=== PATIENT | female | born 1990 | race Caucasian/White ===

== ENCOUNTER 2024-07-30 10:13 | Outpatient (CLI) | payer OTHER | END 2024-07-30 10:54 | disposition home or self-care (01) | LOC: NST 10:13 | PROVIDERS: ATTEND Obstetrics & Gynecology | DX: Z34.83 Encounter for supervision of other normal pregnancy, third trimester (principal) ==

== ENCOUNTER 2024-08-13 12:40 | Outpatient (CLI) | payer OTHER | END 2024-08-13 13:30 | disposition home or self-care (01) | LOC: NST 12:40 | PROVIDERS: ATTEND Obstetrics & Gynecology | DX: Z34.83 Encounter for supervision of other normal pregnancy, third trimester (principal) ==

== ENCOUNTER 2024-08-17 12:58 | Inpatient (IN) | payer OTHER ==
[~2024-08-17] VITALS: Ht 152.4 cm; Wt 2.7 kg
[2024-08-17] MEDS ORDERED: AMPICILLIN SODIUM 2,000 MG VIAL ONE (13:42)
[2024-08-17 13:50] VITALS: BP 135/79
[2024-08-17 14:00] VITALS: BP 135/79
[2024-08-17] MEDS ORDERED: RINGERS SOLUTION,LACTATED 1,000 ML IV SCH (14:05)
[2024-08-17] MEDS ORDERED: PRENATAL + DHA1 EAC1 PO (14:21)
[2024-08-17] MEDS ORDERED: MISOPROSTOL 25 MCG TABLET VAG ONE (15:00)
[2024-08-17 15:17] LABS: BASO % 0.6 % (0.1-1.2); EOS # 0.52 (0.04-0.54); EOS % 3.3 % (0.7-7.0); HEMATOCRIT 37.8 % (34.1-44.9); HEMOGLOBIN 13.3 g/dL (11.2-15.7); LYMPH # 1.49 (1.18-3.74); LYMPH % 9.6 % (19.3-53.1); MEAN CORPUSCULAR HEMOGLOBIN 36.3 pg (25.6-32.2); MONO # 0.96 (0.24-0.82); MONO % 6.2 % (4.7-12.5); NEUT % 78.4 % (34.0-71.1); PLATELET COUNT 204 K/uL (163-369); RED BLOOD COUNT 3.66 M/uL (3.93-5.22); RED CELL DISTRIBUTION WIDTH 16.7 % (11.6-14.4)
[2024-08-17] MEDS ORDERED: AMPICILLIN SODIUM 2,000 MG VIAL IV SCH ×2 (15:17→18:00)
[2024-08-17 15:45] VITALS: BP 139/72
[2024-08-17 15:54] LABS: INR < 0.93; PARTIAL THROMBOPLASTIN TIME 27.8 SECONDS (22.0-34.0); PROTHROMBIN TIME 9.8 SECONDS (9.0-11.5)
[2024-08-17 15:59] LABS: POTASSIUM 3.45 mEq/L (3.5-5.1)
[2024-08-17 16:13] LABS: ALBUMIN 2.8 gm/dL (3.4-5.0); BILIRUBIN TOTAL 1.39 mg/dL (0.3-1.2); CALCIUM 8.5 mg/dL (8.5-10.1); CREATININE SERUM 0.63 mg/dL (0.55-1.02); GFR 107.54; GLOBULINA 3.8 G/DL (2.4-3.5); TOTAL PROTEIN 6.6 gm/dL (6.4-8.2)
[2024-08-17] MEDS ORDERED: MISOPROSTOL 25 MCG TABLET ONE (17:15)
[2024-08-17 19:10] VITALS: BP 129/70
[2024-08-17 23:18] VITALS: BP 134/70
[2024-08-18 02:13] VITALS: BP 138/74
[2024-08-18] MEDS ORDERED: MORPHINE SULFATE 4 MG/ML CARTRIDGE IV PRN ×2 (02:15→14:30)
[2024-08-18] MEDS ORDERED: ACETAMINOPHEN 500 MG GEL..CAP PO ONE (04:30)
[2024-08-18] MEDS ORDERED: ONDANSETRON HCL 2 MG/ML VIAL IV ONE (04:30)
[2024-08-18] MEDS ORDERED: OXYTOCIN 20 UNITS/500ML RL PIGGYBAG IV ONE (06:58)
[2024-08-18 07:31] VITALS: BP 127/65
[2024-08-18] MEDS ORDERED: BUTALB/ACETAMINOPHEN/CAFFEINE 1 TAB TABLET PO ONE (07:45)
[2024-08-18] MEDS ORDERED: OXYTOCIN 500 ML IV ONE (08:00)
[2024-08-18] MEDS ORDERED: METOCLOPRAMIDE HCL 5 MG/ML VIAL IV ONE (11:45)
[2024-08-18] MEDS ORDERED: ERYTHROMYCIN BASE OPHT 1GM EACH TUBE OP ONE ×2 (12:20→13:12)
[2024-08-18] MEDS ORDERED: OXYTOCIN 10 UNITS/ML VIAL ONE ×2 (12:20→13:16)
[2024-08-18] MEDS ORDERED: CEFAZOLIN SODIUM 1,000 MG VIAL ONE (12:45)
[2024-08-18] MEDS ORDERED: CEFAZOLIN SODIUM 1,000 MG VIAL IV SCH (13:00)
[2024-08-18] MEDS ORDERED: RINGERS SOLUTION,LACTATED 1,000 ML IV SCH (14:30)
[2024-08-18] MEDS ORDERED: KETOROLAC TROMETHAMINE 30 MG VIAL IV SCH (14:30)
[2024-08-18] MEDS ORDERED: OXYTOCIN 1,000 ML IV ONE (14:45)
[2024-08-18] MEDS ORDERED: KETOROLAC TROMETHAMINE 30 MG VIAL ONE (16:28)
[2024-08-18] MEDS ORDERED: GABAPENTIN 300 MG CAPSULE PO SCH (17:00)
[2024-08-18] MEDS ORDERED: SIMETHICONE 125 MG CAPSULE PO SCH (17:00)
[2024-08-18] MEDS ORDERED: MORPHINE SULFATE 4 MG/ML VIAL IV ONE (17:10)
[2024-08-18] MEDS ORDERED: ONDANSETRON HCL 2 MG/ML VIAL IV SCH (18:00)
[2024-08-18] MEDS ORDERED: ACETAMINOPHEN 500 MG GEL..CAP PO SCH (18:00)
[2024-08-18 19:42] VITALS: BP 111/71
[2024-08-19 02:20] VITALS: BP 130/85
[2024-08-19 08:00] VITALS: BP 129/80
[2024-08-19] MEDS ORDERED: OxyCODONE HCL 5 MG TABLET (ROXICODONE) PO PRN (08:00)
[2024-08-19] MEDS ORDERED: KETOROLAC TROMETHAMINE 10 MG TABLET PO SCH (08:00)
[2024-08-19] MEDS ORDERED: DOCUSATE SODIUM 100MG CAP PO SCH (09:00)
[2024-08-19 09:46] LABS: BASO % 0.2 % (0.1-1.2); EOS # 0.21 (0.04-0.54); EOS % 1.3 % (0.7-7.0); HEMATOCRIT 30.7 % (34.1-44.9); HEMOGLOBIN 10.7 g/dL (11.2-15.7); LYMPH # 1.24 (1.18-3.74); LYMPH % 7.4 % (19.3-53.1); MEAN CORPUSCULAR HEMOGLOBIN 37.5 pg (25.6-32.2); MONO # 1.06 (0.24-0.82); MONO % 6.4 % (4.7-12.5); NEUT # 13.91 (1.56-6.13); NEUT % 83.5 % (34.0-71.1); PLATELET COUNT 181 K/uL (163-369); RED BLOOD COUNT 2.85 M/uL (3.93-5.22); RED CELL DISTRIBUTION WIDTH 17.5 % (11.6-14.4)
[2024-08-19 16:06] VITALS: BP 125/74
[2024-08-19 20:21] VITALS: BP 128/77
[2024-08-20 02:33] VITALS: BP 140/83
[2024-08-20 08:00] VITALS: BP 139/80
[2024-08-20 11:28] LABS: BASO % 0.2 % (0.1-1.2); EOS # 0.52 (0.04-0.54); EOS % 3.1 % (0.7-7.0); HEMATOCRIT 30.1 % (34.1-44.9); HEMOGLOBIN 10.6 g/dL (11.2-15.7); LYMPH # 1.53 (1.18-3.74); LYMPH % 9.2 % (19.3-53.1); MEAN CORPUSCULAR HEMOGLOBIN 35.8 pg (25.6-32.2); MONO % 7.2 % (4.7-12.5); NEUT # 13.07 (1.56-6.13); NEUT % 78.7 % (34.0-71.1); PLATELET COUNT 199 K/uL (163-369); RED BLOOD COUNT 2.96 M/uL (3.93-5.22); RED CELL DISTRIBUTION WIDTH 16.5 % (11.6-14.4)
[2024-08-20 12:20] LABS: URINE APPEARANCE Clear; URINE BILIRRUBIN Negative (NEGATIVE); URINE BLOOD Large; URINE COLOR Yellow; URINE GLUCOSE Negative (NEGATIVE); URINE KETONE Negative (NEGATIVE); URINE LEUKOCYTE Small; URINE NITRATE Negative; URINE PROTEIN Trace (NEGATIVE)
[2024-08-20 12:23] LABS: URINE BACTERIA 89.3 uL (0.0-1933); URINE EPITHELIAL CELLS 11.3 uL (0.0-38.8); URINE WBC 21.1 uL (0.0-23.2)
[2024-08-20 12:36] LABS: ALBUMIN 2.5 gm/dL (3.4-5.0); BILIRUBIN TOTAL 1.25 mg/dL (0.3-1.2); CALCIUM 8.5 mg/dL (8.5-10.1); CREATININE SERUM 0.64 mg/dL (0.55-1.02); GFR 105.6; GLOBULINA 3.6 G/DL (2.4-3.5); POTASSIUM 3.96 mEq/L (3.5-5.1); TOTAL PROTEIN 6.1 gm/dL (6.4-8.2)
[2024-08-20] MEDS ORDERED: MAGNESIUM SULFATE IN WATER 0.04 GM/ML IV.SOLN IV ONE (13:55)
[2024-08-20] MEDS ORDERED: MAGNESIUM SULFATE IN WATER 0.04 GM/ML IV.SOLN IV SCH (14:00)
[2024-08-20 16:00] VITALS: BP 130/84
[2024-08-20] MEDS ORDERED: FUROsemide 20 MG/2 ML VIAL IV NR (16:00)
[2024-08-20] MEDS ORDERED: LABETALOL HCL 100 MG TABLET PO SCH (17:00)
[2024-08-20 23:55] VITALS: BP 105/69
[2024-08-21 04:57] LABS: BASO % 0.4 % (0.1-1.2); EOS # 0.65 (0.04-0.54); EOS % 3.9 % (0.7-7.0); HEMATOCRIT 29.4 % (34.1-44.9); HEMOGLOBIN 10.2 g/dL (11.2-15.7); LYMPH # 1.88 (1.18-3.74); LYMPH % 11.3 % (19.3-53.1); MEAN CORPUSCULAR HEMOGLOBIN 35.9 pg (25.6-32.2); MONO # 0.99 (0.24-0.82); NEUT # 12.66 (1.56-6.13); NEUT % 76.3 % (34.0-71.1); PLATELET COUNT 182 K/uL (163-369); RED BLOOD COUNT 2.84 M/uL (3.93-5.22); RED CELL DISTRIBUTION WIDTH 16.5 % (11.6-14.4)
[2024-08-21 05:29] LABS: ALBUMIN 2.6 gm/dL (3.4-5.0); BILIRUBIN TOTAL 1.17 mg/dL (0.3-1.2); CALCIUM 7.4 mg/dL (8.5-10.1); CREATININE SERUM 0.47 mg/dL (0.55-1.02); GFR 150.79; GLOBULINA 3.4 G/DL (2.4-3.5); POTASSIUM 4.16 mEq/L (3.5-5.1)
[2024-08-21 08:08] VITALS: BP 135/86
== END 2024-08-21 13:07 | disposition home or self-care (01) | DRG 788 ==
LOC: LDR 12:58 → OB/GYN 08-18 14:05 → LDR 08-23 11:16
PROVIDERS: Obstetrics & Gynecology Gynecology; ADMIT Obstetrics & Gynecology; ATTEND Obstetrics & Gynecology
PROC: 3E0P7VZ Introduction of Hormone into Female Reproductive, Via Natural or Artificial Opening (ICD-10-PCS; 2024-08-17)
PROC: 4A1HXCZ Monitoring of Products of Conception, Cardiac Rate, External Approach (ICD-10-PCS; 2024-08-17)
PROC: 3E033VJ Introduction of Other Hormone into Peripheral Vein, Percutaneous Approach (ICD-10-PCS; 2024-08-18)
PROC: 10D00Z1 Extraction of Products of Conception, Low, Open Approach (ICD-10-PCS; principal; 2024-08-18 13:00)
DX: O82 Encounter for cesarean delivery without indication (principal); O62.1 Secondary uterine inertia; Z3A.38 38 weeks gestation of pregnancy; Z37.0 Single live birth